=== PATIENT | male | born 1965 | race Caucasian/White ===

== ENCOUNTER → 2017-06-22 12:29 | Outpatient (CLI) | payer MEDICAID ==
[2016-01-03 07:39] VITALS: BMI 52.3
[~2017-06-22 12:29] MED LIST: ATIVAN0.5 MG PO; BAYER CHEWABLE81 MG PO; DICLOFENAC SODI50 MG PO; FUROSEMIDE40 MG PO; K-TAB10 MEQ PO; LISINOPRIL10 MG PO; NEURONTIN 300300 MG PO; PERCOCET 10/3251 TA1 PO; VENTOLIN HFA18 GM INH; ZANAFLEX4 MG PO
== END | disposition home or self-care (01) ==
LOC: D.CT 06-05 08:00
DX: R42 Dizziness and giddiness (principal)

== ENCOUNTER → 2017-08-25 19:08 | Outpatient (CLI) | payer MEDICAID ==
[2016-01-03 07:39] VITALS: BMI 52.3
== END | disposition home or self-care (01) ==
LOC: D.SLEEP 08:00
DX: G47.33 Obstructive sleep apnea (adult) (pediatric) (principal)

== ENCOUNTER → 2018-11-25 16:19 | Outpatient (CLI) | payer SELFPAY ==
[2016-01-03 07:39] VITALS: BMI 52.3
[2018-11-25 18:32] LABS: EOSINOPHILS 2.8 % (0-7); HEMATOCRIT 43.5 % (42.0-54.0); HEMOGLOBIN 15.3 g/dL (13.5-17.5); IMMATURE GRANULOCYTES 0.2 % (0-5); LYMPHOCYTES 39.8 % (15-50); MCH 32.2 pg (26.0-34.0); MCHC 35.2 g/dL (31.0-37.0); MCV 91.6 fL (80.0-100.0); MEAN PLATELET VOLUME 11.3 fL (7.4-10.4); MONOCYTES 7.9 % (2-11); NEUTROPHILS 48.3 % (40-80); PLATELET COUNT 102 10x3/uL (130-400); RBC 4.75 10x6/uL (4.20-6.10); RDW 13.9 % (11.5-14.5); WBC 6.1 10x3/uL (4.8-10.8)
[2018-11-25 19:31] LABS: ERYTHROCYTE SEDIMENTATION RATE 10 mm/hr (0-20)
== END | disposition home or self-care (01) ==
LOC: D.LABREF 16:19
PROVIDERS: ATTEND Orthopaedic Surgery
DX: M25.562 Pain in left knee (principal)

== ENCOUNTER → 2018-12-17 07:58 | Outpatient (CLI) | payer OTHER ==
[2016-01-03 07:39] VITALS: BMI 52.3
== END | disposition home or self-care (01) ==
LOC: D.NM 07:58
PROVIDERS: ATTEND Orthopaedic Surgery
DX: Z96.651 Presence of right artificial knee joint (principal)

== ENCOUNTER 2019-03-03 10:27 | Emergency (ER) | payer OTHER ==
[~2019-03-03] VITALS: Ht 170.2 cm; Wt 147.3 kg
[2019-03-03 10:31] VITALS: Ht 170.2 cm; Wt 147.3 kg
[2019-03-03] MEDS ORDERED: TOPAMAX100 MG PO (11:02)
[2019-03-03] MEDS ORDERED: EFFEXOR XR150 MG (11:02)
[2019-03-03] MEDS ORDERED: NEURONTIN600 MG PO (11:03)
[2019-03-03] MEDS ORDERED: TORADOL10 MG PO (12:50)
[2019-03-03 13:24] VITALS: BP 120/80
== END 2019-03-03 13:28 | disposition home or self-care (01) ==
LOC: D.ER 10:27
DX: S46.911A Strain of unspecified muscle, fascia and tendon at shoulder and upper arm level, right arm, initial encounter (principal); W18.30XA Fall on same level, unspecified, initial encounter; Y93.89 Activity, other specified; Y92.89 Other specified places as the place of occurrence of the external cause; S40.011A Contusion of right shoulder, initial encounter

== ENCOUNTER → 2019-06-22 07:02 | Outpatient (CLI) | payer OTHER ==
[2019-03-03 10:31] VITALS: BMI 50.8
[~2019-06-22 07:02] MED LIST changes: +EFFEXOR XR150 MG; +NEURONTIN600 MG PO; +TOPAMAX100 MG PO; +TORADOL10 MG PO
[2019-06-22 07:35] LABS: BASOPHILS 0.7 % (0-2); EOSINOPHILS 1.9 % (0-7); HEMATOCRIT 43.7 % (42.0-54.0); HEMOGLOBIN 14.8 g/dL (13.5-17.5); IMMATURE GRANULOCYTES 0.2 % (0-5); LYMPHOCYTES 34.5 % (15-50); MCH 31.9 pg (26.0-34.0); MCHC 33.9 g/dL (31.0-37.0); MCV 94.2 fL (80.0-100.0); MEAN PLATELET VOLUME 10.7 fL (7.4-10.4); MONOCYTES 10.4 % (2-11); NEUTROPHILS 52.3 % (40-80); PLATELET COUNT 85 10x3/uL (130-400); RBC 4.64 10x6/uL (4.20-6.10); RDW 14.2 % (11.5-14.5); WBC 4.1 10x3/uL (4.8-10.8)
[2019-06-22 07:45] LABS: APTT 30.9 SECONDS (22.8-39.4); INR 1.13 (0.85-1.17)
[2019-06-22 08:08] LABS: ALBUMIN 3.9 g/dL (3.4-5.0); ALKALINE PHOSPHATASE 76 U/L (46-116); ALT (SGPT) 52 U/L (10-68); BILIRUBIN - DIRECT 0.17 mg/dL (0.00-0.30); BILIRUBIN - INDIRECT 0.45 mg/dL (0.00-1.00); BILIRUBIN - TOTAL 0.62 mg/dL (0.2-1.3); CALC OSMOLALITY 282 mosm/kg (275-300); CALCIUM 8.7 mg/dL (8.5-10.1); CARBON DIOXIDE 24.8 mmol/L (21.0-32.0); CHLORIDE - SERUM 106 mmol/L (98-107); CHOL - HDL RATIO 3.2 ratio (2.3-4.9); CHOLESTEROL, TOTAL 155 mg/dL (0-200); FERRITIN 310 ng/mL (3-244); GAMMA GT 103 U/L (5-85); GLUCOSE 108 mg/dL (74-106); HDL CHOLESTEROL 49 mg/dL (32-96); LDL CHOLESTEROL 95 mg/dL (0-100); LDL-HDL RATIO 1.9 ratio (1.5-3.5); POTASSIUM - SERUM 3.7 mmol/L (3.5-5.1); PROTEIN - SERUM 7.7 g/dL (6.4-8.2); SODIUM 141 mmol/L (136-145); TRIGLYCERIDE 57 mg/dL (30-200); UREA NITROGEN 15 mg/dL (7-18); eGFR NON AFRICAN AMERICAN 83 mL/min (90-120)
[2019-06-22 08:10] LABS: PLATELET ESTIMATE DECREASED
[2019-06-22 08:31] LABS: % SATURATION 30 % (15-55); IRON 118 ug/dl (35-150); TOTAL IRON BIND CAPACITY 381 ug/dl (260-445); UNSAT IRON BIND CAPACITY 263 ug/dl (150-375)
[2019-06-23 08:10] LABS: HAPTOGLOBIN 94 mg/dL (34-200)
[2019-06-24 11:09] LABS: HEPATITIS C ANTIBODY 0.2 S/CO RAT (0.0-0.9)
[2019-06-24 12:08] LABS: ANA REFLEX - DIRECT Negative (Negative)
[2019-06-24 14:08] LABS: ALPHA FETOPROTEIN -(TUMOR MRK) 7.5 ng/mL (0.0-8.3)
[2019-06-28 09:09] LABS: MITOCHONDRIAL ANTIBODY <20.0 Units (0.0-20.0); SMOOTH MUSCLE ABS (ACTIN) 6 Units (0-19)
== END | disposition home or self-care (01) ==
LOC: D.LAB 07:02
PROVIDERS: ATTEND Internal Medicine Gastroenterology
DX: K74.60 Unspecified cirrhosis of liver (principal); R16.1 Splenomegaly, not elsewhere classified; R10.9 Unspecified abdominal pain

== ENCOUNTER 2019-10-04 18:00 | Inpatient (IN) | payer OTHER ==
[~2019-10-04] VITALS: Ht 170.2 cm; Wt 140.0 kg
--- NOTE | 2019-10-04 18:55 | NUR ---
TRAUMA BAND [id number] APPLIED
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
[2019-10-04 19:02] VITALS: BP 151/80
[2019-10-04 19:07] LABS: BASOPHILS 0.6 % (0-2); EOSINOPHILS 1.5 % (0-7); HEMATOCRIT 41.8 % (42.0-54.0); HEMOGLOBIN 14.3 g/dL (13.5-17.5); IMMATURE GRANULOCYTES 0.2 % (0-5); LYMPHOCYTES 25.5 % (15-50); MCH 31.5 pg (26.0-34.0); MCHC 34.2 g/dL (31.0-37.0); MCV 92.1 fL (80.0-100.0); MEAN PLATELET VOLUME 10.9 fL (7.4-10.4); MONOCYTES 9.1 % (2-11); NEUTROPHILS 63.1 % (40-80); PLATELET COUNT 94 10x3/uL (130-400); RBC 4.54 10x6/uL (4.20-6.10); RDW 13.7 % (11.5-14.5); WBC 6.6 10x3/uL (4.8-10.8)
--- NOTE | 2019-10-04 19:10 | NUR ---
REPORT TO PATRICIA DIXON
[2019-10-04 19:24] LABS: APTT 32.4 SECONDS (22.8-39.4); INR 1.08 (0.85-1.17); PROTIME 13.9 SECONDS (11.6-15.0)
[2019-10-04 19:25] LABS: ANION GAP 10.5 mmol/L (8-16); CALCIUM 8.8 mg/dL (8.5-10.1); CARBON DIOXIDE 28.1 mmol/L (21.0-32.0); CREATININE - SERUM 1.1 mg/dL (0.6-1.3); POTASSIUM - SERUM 3.6 mmol/L (3.5-5.1)
[2019-10-04 19:30] LABS: ALBUMIN 3.9 g/dL (3.4-5.0); BILIRUBIN - TOTAL 0.42 mg/dL (0.2-1.3); PROTEIN - SERUM 7.6 g/dL (6.4-8.2)
--- NOTE | 2019-10-04 19:39 | NUR ---
SPOKE WITH PAKO, CHARGE NURSE AT THE [facility] IN [place]. PT HAS AN APPOINTMENT AT 0930 IN THE MORNING 10/05/2019. PAGE INTO ADMITTING
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
--- NOTE | 2019-10-04 19:46 | NUR ---
[facility] PHONE [phone] FAX [phone]
[2019-10-04 19:52] LABS: PLATELET ESTIMATE DECREASED
--- NOTE | 2019-10-04 21:01 | NUR ---
PT SITTING UP IN BED, VISITORS AT BEDSIDE. NO ACUTE DISTRESS NOTED. CALL LIGHT WITHIN REACH, WILL CONTINUE TO MONITOR.
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
[2019-10-04 23:27] VITALS: BP 136/82; BMI 49.3
--- NOTE | 2019-10-04 23:27 | NUR ---
ADMISSION ASSESSMENT, HISTORY, AND MED REC INITIATED, PT'S BROTHER IN ROOM, PT EATING DURING HISTORY
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
--- NOTE | 2019-10-05 01:24 | NUR ---
PT AWAKE, PLAYING VIDEO GAME ON CELL PHONE, PT DECIDED HE WANTED TO TRY THE SCD'S, SCD'S PLACED ON AND WORKING PROPERLY, PT STATES "HEY, I NIGEL LIKE THESE", PT RATES RIGHT ARM PAIN /, PT REPORTS NOT PUSHING ONCOLOGY REP BUTTON, PT INST AGAIN ON ONCOLOGY REP, PT VERBALIZES UNDERSTANDING, PT STATES "I'M OK RIGHT NOW", PT DENIES NEEDS AT THIS TIME, BED IN LOW POSITION, SIDE RAILS X 2, CALL LIGHT IN REACH, PT'S BROTHER AT BEDSIDE
[2019-10-05 04:28] VITALS: BP 126/75
--- NOTE | 2019-10-05 04:28 | NUR ---
PT RESTING WITH EYES CLOSED, AROUSES TO SOFT VERBAL STIMULATION, VS OBTAINED, PUMPS CLEARED, SCD'S CONTINUE ON AND WORKING PROPERLY, PT DENIES NEEDS OR PAIN AT THIS TIME, BED IN LOW POSITION, SIDE RAILS X 2, CALL LIGHT IN REACH, PT'S BROTHER ASLEEP AT BEDSIDE
[2019-10-05 06:25] LABS: BASOPHILS 0.6 % (0-2); HEMATOCRIT 37.3 % (42.0-54.0); HEMOGLOBIN 12.6 g/dL (13.5-17.5); LYMPHOCYTES 37.7 % (15-50); MCH 31.5 pg (26.0-34.0); MCHC 33.8 g/dL (31.0-37.0); MCV 93.3 fL (80.0-100.0); MONOCYTES 10.2 % (2-11); NEUTROPHILS 48.5 % (40-80); RDW 13.9 % (11.5-14.5)
--- NOTE | 2019-10-05 06:34 | NUR ---
PT PATTERN CHECKER LIGHT, STATES "I THINK THIS IV IS LEAKING", IV FLUSHED WITH 10MLS OF NS WITH GOOD BLOOD RETURN, NO LEAKING NOTED AROUND CATH AT THIS TIME, INFORMED PT THAT I WILL LET DAY SHIFT NURSE KNOW TO CONTINUE WATCHING IT, PT VERBALIZES UNDERSTANDING, PT REQUESTED AND SCD'S REMOVED AT THIS TIME, DENIES FURTHER NEEDS, PT'S BROTHER AT BEDSIDE
[2019-10-05 06:42] LABS: PLATELET COUNT 63 10x3/uL (130-400); WBC 3.3 10x3/uL (4.8-10.8)
[2019-10-05 06:47] LABS: ANION GAP 10.8 mmol/L (8-16); BILIRUBIN - TOTAL 0.32 mg/dL (0.2-1.3); CALCIUM 7.9 mg/dL (8.5-10.1); CARBON DIOXIDE 27.8 mmol/L (21.0-32.0); CREATININE - SERUM 1.1 mg/dL (0.6-1.3); MAGNESIUM - SERUM 2.1 mg/dL (1.8-2.4); PHOSPHOROUS 4.1 mg/dL (2.5-4.9); POTASSIUM - SERUM 3.6 mmol/L (3.5-5.1); PROTEIN - SERUM 6.1 g/dL (6.4-8.2)
[2019-10-05 08:30] VITALS: BP 143/93
--- NOTE | 2019-10-05 08:30 | NUR ---
EMBER PIÑA ROUNDING ON DR BARONE'S PATIENTS. INFORMED OF LOW PLATELET COUNT THIS AM AND THAT IS IS LOWER THAN YESTERDAY'S COUNT. ORDER RECEIVED TO HOLD ASPIRIN AND LOVENOX AT THIS TIME. WILLL PROCEED ORDERED.
--- NOTE | 2019-10-05 08:35 | NUR ---
SHIFT ASSESSMENT COMPLETE, VSS, SEE FLOWSHEET FOR DOC. POC DISCUSSED WITH PT, DENIES NEEDS AT THIS TIME, STATES OFFICE SERVICES CLERK IS MANAGING PAIN WELL AND HAS RARELY NEEDED TO PUSH OFFICE SERVICES CLERK BUTTON. SRUx2, CL IN REACH. WILL CONT TO MONITOR.
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
--- NOTE | 2019-10-05 10:30 | NUR ---
DRESSING CHANGED PER ORDER AT APPROX 1015, BACTROBAN APPLIED AND NON-ADHERENT DRESSING PLACED AND WRAPPED. PT LOLA WELL, STATES PASTA PRESS OPERATOR IS MANAGING PAIN WELL. X-RAY STAFF TO ROOM AT THIS TIME FOR ORDERED CHEST X-RAY.
[2019-10-05 12:48] LABS: BILIRUBIN NEGATIVE (NEGATIVE); GLUCOSE NEGATIVE (NEGATIVE); KETONE NEGATIVE (NEGATIVE); NITRITE NEGATIVE (NEGATIVE)
[2019-10-05 13:12] VITALS: BP 142/95; BP 143/93
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
[2019-10-05 14:22] VITALS: BMI 49.2
--- NOTE | 2019-10-05 17:12 | NUR ---
DR BARONE VISITS WITH PT.
--- NOTE | 2019-10-05 17:23 | NUR ---
NEURONTIN ADMIN ORDERED. FRESH ICE WATER GIVEN WELL. PT DENIES FURTHER NEEDS. WILL CONT TO MONITOR.
[2019-10-05 17:30] VITALS: BP 145/82
--- NOTE | 2019-10-05 18:37 | NUR ---
PT SUPINE IN BED WITH HOB 60 DEGREES, RESTING AND WATCHING TELEVISION, DENIES NEEDS.
[2019-10-05 20:00] VITALS: BP 130/70
[2019-10-06] VITALS: BP 144/70
[2019-10-06 06:22] LABS: BASOPHILS 0.3 % (0-2); EOSINOPHILS 2.6 % (0-7); HEMATOCRIT 38.9 % (42.0-54.0); IMMATURE GRANULOCYTES 0.3 % (0-5); LYMPHOCYTES 36.2 % (15-50); MCH 31.3 pg (26.0-34.0); MCHC 33.4 g/dL (31.0-37.0); MCV 93.5 fL (80.0-100.0); MEAN PLATELET VOLUME 11.6 fL (7.4-10.4); MONOCYTES 10.4 % (2-11); NEUTROPHILS 50.2 % (40-80); PLATELET COUNT 69 10x3/uL (130-400); RBC 4.16 10x6/uL (4.20-6.10); RDW 13.9 % (11.5-14.5); WBC 3.5 10x3/uL (4.8-10.8)
[2019-10-06 06:43] LABS: CALC OSMOLALITY 284 mosm/kg (275-300); CALCIUM 8.1 mg/dL (8.5-10.1); CARBON DIOXIDE 26.5 mmol/L (21.0-32.0); CHLORIDE - SERUM 109 mmol/L (98-107); GLUCOSE 119 mg/dL (74-106); POTASSIUM - SERUM 3.7 mmol/L (3.5-5.1); SODIUM 143 mmol/L (136-145); UREA NITROGEN 11 mg/dL (7-18)
[2019-10-06 06:49] LABS: CREATININE - SERUM 0.8 mg/dL (0.6-1.3); eGFR NON AFRICAN AMERICAN > 90 mL/min (90-120)
[2019-10-06 08:14] LABS: PLATELET ESTIMATE DECREASED
--- NOTE | 2019-10-06 08:16 | NUR ---
CUFF FOLDER BEEPING MAX LIMIT REACH. PT REPORTS THAT PAIN IS 6-8/10. WILL CONTACT MD AND NOTIFY.
--- NOTE | 2019-10-06 08:21 | NUR ---
Cam SARABIA APRN ON UNIT. PAIN DISCUSSED. ORDERS REC'D.
--- NOTE | 2019-10-06 08:28 | NUR ---
MOJGAN, WOUND RN ON UNIT TO SEE PT.
[2019-10-06 08:54] VITALS: BP 130/75
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
--- NOTE | 2019-10-06 11:24 | NUR ---
PIV RESITED TO L WRIST PER PT REQUEST D/T L A/C PIV IMPEDEING MOVEMENT. 20 G X1 STICK PER Dilcia CARDENAS, EXCELLENT BLOOD RETURN NOTED, SECURED WITH TAPE AND TEGADERM. L A/C PIV FLUSHED AND SL.
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
--- NOTE | 2019-10-06 16:25 | NUR ---
DR. LAMB AT BEDSIDE FOR EVAL. EVALS CHANDLER. ORDERS REC'D TO D/C VANC AND PT MAY D/C HOME FROM HIS STAND POINT. DR. LAMB ADDRESSES WOUND CARE WITH PT WHO VERBALIZES UNDERSTANDING TO CLEANSE WITH MILD SOAP AND WATER AND DRSG WITH VASELINE AND GAUZE UNTIL HEALED.
--- NOTE | 2019-10-06 16:31 | NUR ---
DR. BARONE CELL PHONE CALLED, NO ANSWER, VOICEMAIL LEFT REQUESTING CALLBACK TO DISCUSS CONSULT WITH DR. LAMB AND POSSIBLE ORDER FOR D/C HOME.
--- NOTE | 2019-10-06 16:38 | NUR ---
PLANS FOR D/C DISCUSSED WITH PT. CM CONSULT FOR HH SERVICES OFFERED AND DECLINED BY PT. STATES THAT HE CAN PERFORM DRSG CHANGES INDEPENDENTLY AND VERBALIZES TO RN S/S OF INFECTION TO REPORT.
[2019-10-06 17:18] VITALS: Ht 170.2 cm; Wt 140.0 kg
[2019-10-06] MEDS ORDERED: HYDROCODON-ACE1 EAC7 PO (17:18)
--- NOTE | 2019-10-06 17:46 | NUR ---
L A/C AND L WRIST PIV REMOVED, BOTH WITH TIP INTACT. BANDAID APPLIED. D/C INSTRUCTIONS GIVEN PT AND FRIEND, BOTH VERBALIZE UNDERSTANDING AND DENY QUESTIONS. COPY OF D/C INSTRUCTIONS PROVIDED TO PT, REFUSES W/C OFF UNIT. STEADY GAIT NOTED. PT ACCOMPANIED TO MAIN ENTRANCE TO AWAITING PRIVATE VECHILE.
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
== END 2019-10-06 17:46 | disposition home or self-care (01) | DRG 935 ==
LOC: D.ER 18:00 → D.WS 19:20 → OBSVTIME 19:20 → D.WS 10-05 18:26
PROVIDERS: Family Medicine; ADMIT Internal Medicine Nephrology; ATTEND Internal Medicine Nephrology
PROC: 2W2CX4Z Dressing of Right Lower Arm using Bandage (ICD-10-PCS; principal; 2019-10-06)
DX: T22.211A Burn of second degree of right forearm, initial encounter (principal); X08.8XXA Exposure to other specified smoke, fire and flames, initial encounter; D64.9 Anemia, unspecified; D69.6 Thrombocytopenia, unspecified; K74.60 Unspecified cirrhosis of liver; G89.29 Other chronic pain; J44.9 Chronic obstructive pulmonary disease, unspecified; F41.8 Other specified anxiety disorders

== ENCOUNTER → 2021-01-07 07:19 | Outpatient (CLI) | payer OTHER ==
[~2021-01-07 07:19] MED LIST changes: +CYCLOBENZAPRINE10 MG PO; +HYDROCODON-ACE1 EAC7 PO; +VOLTAREN75 MG PO
[2021-01-07 07:52] LABS: EOSINOPHILS 1.5 % (0-7); HEMATOCRIT 43.8 % (42.0-54.0); HEMOGLOBIN 15.1 g/dL (13.5-17.5); LYMPHOCYTES 28.2 % (15-50); MCH 31.1 pg (26.0-34.0); MCHC 34.4 g/dL (31.0-37.0); MCV 90.4 fL (80.0-100.0); MEAN PLATELET VOLUME 8.7 fL (7.4-10.4); MONOCYTES 9.7 % (2-11); NEUTROPHILS 59.6 % (40-80); PLATELET COUNT 84 10x3/uL (130-400); RBC 4.84 10x6/uL (4.20-6.10); WBC 4.5 10x3/uL (4.8-10.8)
[2021-01-07 07:56] LABS: INR 1.16 (0.85-1.17); PROTIME 13.8 SECONDS (11.6-15.0)
[2021-01-07 08:03] LABS: ALBUMIN 3.8 g/dL (3.4-5.0); BILIRUBIN - DIRECT 0.15 mg/dL (0.00-0.30); BILIRUBIN - INDIRECT 0.33 mg/dL (0.00-1.00); BILIRUBIN - TOTAL 0.48 mg/dL (0.2-1.3); PROTEIN - SERUM 7.3 g/dL (6.4-8.2)
[2021-01-07 14:34] LABS: PLATELET ESTIMATE DECREASED
== END | disposition home or self-care (01) ==
LOC: D.US 07:19
PROVIDERS: ATTEND Internal Medicine Gastroenterology
DX: K74.60 Unspecified cirrhosis of liver (principal)

== ENCOUNTER → 2021-01-16 07:32 | Outpatient (CLI) | payer OTHER | END | disposition home or self-care (01) | LOC: D.LAB 07:32 | PROVIDERS: ATTEND Internal Medicine Gastroenterology | DX: E72.20 Disorder of urea cycle metabolism, unspecified (principal) ==